=== PATIENT | female | born 1960 | race Caucasian/White ===

== ENCOUNTER 2016-10-07 14:34 | Emergency (ER) | payer MEDICARE, OTHER ==
[~2016-10-07] VITALS: Ht 172.7 cm; Wt 97.0 kg
[~2016-10-07 14:34] MED LIST: AZIT250T94 PO; IBUP-1542 PO; PROM5SYR2 PO
[2016-10-07 15:28] VITALS: Ht 172.7 cm; Wt 97.0 kg
--- NOTE | 2016-10-07 17:51 | ERD ---
ER Documentation Chief Complaint Date/Time DATE: 10/07/16 TIME: 17:47 Chief Complaint COUGH CONGESTION CWP WHEN COUGHING HPI Patient is a 56-year-old female who presents to the ED for cough, congestion, runny nose and chills. She states that she has had a cough for 3 weeks. She states that she was given azithromycin 3 weeks ago for bronchitis. She states that her cough got better and now has come back. She complains of a productive and dry cough, nasal congestion, chills. She denies fevers. She denies abdominal pain, nausea, vomiting or diarrhea. She denies shortness of breath, leg pain or swelling. She denies recent travel. She denies headache or dizziness or weakness. Denies neck pain or stiffness. patient has a history of smoking, smokes about 1/2 pack to 1 pack a day. ROS All systems reviewed and are negative except as per history of present illness. Medications Home Meds Active Scripts Benzonatate* (Tessalon Perle*) 100 Mg Capsule, 100 MG PO Q8H Y for COUGH for 14 Days, CAP Prov:MANUEL LARES PA-C 10/07/16 Albuterol Sulfate* (Albuterol Sulfate*) 4 Mg Tablet, 4 MG PO TID for 14 Days, TAB Prov:MANUEL LARES PA-C 10/07/16 Prednisone* (Prednisone*) 20 Mg Tab, 40 MG PO DAILY for 4 Days, TAB Prov:MANUEL LARES PA-C 10/07/16 Promethazine HCl/Codeine (Prometh-Codein 6.25-10 mg/5 ml) 5 Ml Syrup, 5 ML PO QID for 5 Days Prov:ERICKA ABREU MD 09/16/16 Azithromycin* (Zithromax*) 250 Mg Tablet, 250 MG PO .ZPACK DIRECTED, #6 TAB TAKE 500 MG (2 TABS) THE FIRST DAY THEN 250 MG (1 TAB) DAYS 2-5 Prov:ERICKA ABREU MD 09/16/16 Ibuprofen* (Motrin*) 600 Mg Tab, 600 MG PO Q6, #20 TAB Prov:ERICKA ABREU MD 09/16/16 Discontinued Scripts Albuterol Sulfate* (Albuterol Sulfate* Liq) 2 Mg/5 Ml Syrup, 2 MG PO TID, #240 ML Prov:ARNAUDMANUEL DEGROOT 10/07/16 Allergies Allergies: Coded Allergies: amoxicillin (Verified Allergy, Mild, ITCHING, 09/16/16) Penicillins (Verified Allergy, Unknown, 09/16/16) phenol (Verified Allergy, Unknown, 09/16/16) PMhx/Soc History of Surgery: Yes (RIGHT ANKLE) Anesthesia Reaction: No Hx Neurological Disorder: No Hx Respiratory Disorders: No Hx Cardiac Disorders: No Hx Psychiatric Problems: Yes (SCHIZOPHRENIA) Hx Miscellaneous Medical Probl: No Hx Alcohol Use: No Hx Substance Use: No Hx Tobacco Use: No FmHx Family History: No coronary disease, No diabetes, No other Physical Exam Vitals Vital Signs Date Time Temp Pulse Resp B/P Pulse Ox O2 Delivery O2 Flow Rate FiO2 10/07/16 18:46 98.7 92 18 153/72 97 Room Air 10/07/16 17:54 80 18 96 21 10/07/16 15:28 98.7 87 18 163/77 95 Physical Exam GENERAL: Well-developed, well-nourished female. Appears in mild distress. HEAD: Normocephalic, atraumatic. EYES: Pupils are equally reactive bilaterally. EOMs grossly intact. No conjunctival erythema. ENT: Moist mucous membranes. No uvula deviation. No kissing tonsils. No exudates. NECK: Supple. No lymphadenopathy or thyromegaly. No meningismus. negative brudinski. negative kernig. LUNG: Clear to auscultation bilaterally. No rhonchi, wheezing, rales. coarse breath sounds. chest tightness HEART: Regular rate and rhythm. No murmurs, rubs or gallops. Extremities: Equal pulses bilaterally. No peripheral clubbing, cyanosis or edema. No unilateral leg swelling. NEUROLOGIC: Alert and oriented. Moving all four extremities. 5/5 strength in all extremities. Normal speech. Steady gait. SKIN: Normal color. Warm and dry. No rashes or lesions. Capillary refill < 2 seconds Results 24 hrs Current Medications Medications (Trade) Dose Ordered Sig/Nati Route PRN Reason Start Time Stop Time Status Last Admin Dose Admin Albuterol (Proventil 0.083% (Neb)) 5 mg ONCE ONCE HHN 10/07/16 18:00 10/07/16 18:01 DC 10/07/16 17:54 Ipratropium Ivins (Atrovent 0.02% (Neb)) 0.5 mg ONCE ONCE HHN 10/07/16 18:00 10/07/16 18:01 DC 10/07/16 17:54 Procedures/MDM ER COURSE: I kept the patient and/or family informed of laboratory and diagnostic imaging results throughout the emergency room course. EKG, MONITORS, & DIAGNOSTIC IMAGING: [place] [address] Radiology Main Line: [phone] DIAGNOSTIC IMAGING REPORT Patient: MARY MARTÍNEZ : 1960 Age: 56 Sex: F MR #: [id number] DOS: 10/07/16 1737 Ordering MD: MANUEL LARES PA-C Location: [facility] Room/Bed: PROCEDURE: XR Chest. CLINICAL INDICATION: Cough TECHNIQUE: Single frontal view of the chest was obtained COMPARISON: 05/03/2009 FINDINGS: The heart and mediastinum are within normal limits. There are mild increased interstitial changes in the lung bases. There is no pleural effusion or pneumothorax. RPTAT: AA IMPRESSION: Mild increased interstitial changes in the lung bases with no focal consolidation. .Ross Hodge MD, MD Date Time Electronically viewed and signed by .Ross Hodge MD, on 10/07/2016 18: 21 .S/ CC: MANUEL LARES PA-C PROCEDURES: RT consult. Atrovent and Albuterol. Patient stated improvement in symptoms. MEDICAL DECISION MAKING: This is a 56-year-old female who presents with cough, congestion.. Vital signs were reviewed. Patient is afebrile. Patient is not hypoxic. Patient has cough of unknown known etiology. Low suspicion for pneumonia, PE, pneumothorax, ACS, epiglottitis, obstruction, TB, pertussis, meningitis, sepsis. I have low suspicion for cardiac emergencies. Low suspicion for ACS, PE, AAA, dissection, DVT. Patient is not tachycardic, no leg pain or swelling. Low suspicion for peritonsillar abscess, strep pharyngitis, mononucleosis, dental abscess. I do not think patient needs to be admitted at this time as she does not shows signs of respiratory distress and has oxygen saturation within normal limits. DISCHARGE: At this time, patient is stable for discharge and outpatient management with no new complaints during the ER course. Patient was sent home with albuterol, Tessalon Perles, prednisone. Patient will be discharged home with instructions to recheck for new or worsening symptoms such as fever, nausea, weakness, LOC and to follow up with primary care in the next 1-2 days. Patient was advised to return to the ER for any new or worsening symptoms. Plan was discussed and patient and/or family understands and agrees. Home instructions were given. Departure Diagnosis: Primary Impression: Cough Condition: Stable MANUEL LARES PA-C Oct 07, 2016 17:51
[2016-10-07] MEDS ORDERED: ALBUTEROL 0.083% (NEB) 2.5 MG/3 ML AMP HHN ONE (18:00)
[2016-10-07] MEDS ORDERED: IPRATROPIUM (NEB) 0.5 MG/2.5 ML AMP HHN ONE (18:00)
--- NOTE | 2016-10-07 18:21 | RADRPT ---
PROCEDURE: XR Chest. CLINICAL INDICATION: Cough TECHNIQUE: Single frontal view of the chest was obtained COMPARISON: 05/03/2009 FINDINGS: The heart and mediastinum are within normal limits. There are mild increased interstitial changes in the lung bases. There is no pleural effusion or pneumothorax. RPTAT: AA IMPRESSION: Mild increased interstitial changes in the lung bases with no focal consolidation. .Ross Hodge MD, MD Date Time Electronically viewed and signed by .Ross Hodge MD, on 10/07/2016 18:21 .S/
[2016-10-07] MEDS ORDERED: PRED20TA PO (18:30)
[2016-10-07] MEDS ORDERED: ALBU4TAB4 PO (18:31)
[2016-10-07] MEDS ORDERED: ALBU2SYR10 PO (18:31)
[2016-10-07] MEDS ORDERED: BENZ100C70 PO (18:31)
[2016-10-07 18:46] VITALS: BP 153/72; PULSE 92; RESP 18; TEMP 98.7
== END 2016-10-07 18:45 | disposition home or self-care (01) ==
LOC: FTE 14:34
DX: R05 Cough (principal); F17.210 Nicotine dependence, cigarettes, uncomplicated
CPT/HCPCS: 71010; 94664

== ENCOUNTER 2016-11-30 14:28 | Emergency (ER) | payer MEDICARE, OTHER ==
[~2016-11-30] VITALS: Ht 172.7 cm; Wt 99.9 kg
[~2016-11-30 14:28] MED LIST changes: +ALBU4TAB4 PO; +BENZ100C70 PO; +PRED20TA PO
[2016-11-30 14:44] VITALS: Ht 172.7 cm; Wt 99.9 kg
== END 2016-11-30 19:13 | disposition left against medical advice (07) ==
LOC: FTE 14:28
DX: Z53.21 Procedure and treatment not carried out due to patient leaving prior to being seen by health care provider (principal)

== ENCOUNTER 2016-12-10 08:56 | Emergency (ER) | payer MEDICARE, OTHER ==
[~2016-12-10] VITALS: Wt 78.0 kg
[2016-12-10] MEDS ORDERED: IBUP-1542 PO (11:54)
[2016-12-10] MEDS ORDERED: CLIN-73 PO (11:54)
--- NOTE | 2016-12-10 13:21 | ERD ---
ER Documentation Chief Complaint Date/Time DATE: 12/10/16 TIME: 13:20 Chief Complaint left lower leg redness for a few days. bruising . no fevers noted. HPI Patient is a 56-year-old female with psychiatric disease who presents with left ankle pain and redness. She said that she fell a few days ago onto a shopping cart. She had an injury which broke the skin and now has redness around that area. She felt chills but no fevers. Upon review of old medical records she has multiple visits to the ER for various complaints. Her primary doctor is Dr. Parks. ROS All systems reviewed and are negative except as per history of present illness. Medications Home Meds Active Scripts Ibuprofen* (Motrin*) 600 Mg Tab, 600 MG PO Q6H Y for PAIN AND OR ELEVATED TEMP, #30 TAB Prov:MK CHOI MD 12/10/16 Clindamycin Hcl* (Clindamycin Hcl*) 300 Mg Capsule, 300 MG PO TID for 7 Days, CAP Prov:MK CHOI MD 12/10/16 Benzonatate* (Tessalon Perle*) 100 Mg Capsule, 100 MG PO Q8H Y for COUGH for 14 Days, CAP Prov:MANUEL LARESC 10/07/16 Albuterol Sulfate* (Albuterol Sulfate*) 4 Mg Tablet, 4 MG PO TID for 14 Days, TAB Prov:MANUEL LARES PA-C 10/07/16 Prednisone* (Prednisone*) 20 Mg Tab, 40 MG PO DAILY for 4 Days, TAB Prov:MANUEL LARES PA-C 10/07/16 Promethazine HCl/Codeine (Prometh-Codein 6.25-10 mg/5 ml) 5 Ml Syrup, 5 ML PO QID for 5 Days Prov:ERICKA ABREU MD 09/16/16 Azithromycin* (Zithromax*) 250 Mg Tablet, 250 MG PO .JayleenPACK DIRECTED, #6 TAB TAKE 500 MG (2 TABS) THE FIRST DAY THEN 250 MG (1 TAB) DAYS 2-5 Prov:ERICKA ABREU MD 09/16/16 Ibuprofen* (Motrin*) 600 Mg Tab, 600 MG PO Q6, #20 TAB Prov:ERICKA ABREU MD 09/16/16 Allergies Allergies: Coded Allergies: amoxicillin (Verified Allergy, Mild, ITCHING, 09/16/16) Penicillins (Verified Allergy, Unknown, 09/16/16) phenol (Verified Allergy, Unknown, 09/16/16) PMhx/Soc History of Surgery: Yes (RIGHT ANKLE) Anesthesia Reaction: No Hx Neurological Disorder: No Hx Respiratory Disorders: No Hx Cardiac Disorders: No Hx Psychiatric Problems: Yes (SCHIZOPHRENIA) Hx Miscellaneous Medical Probl: No Hx Alcohol Use: No Hx Substance Use: No Hx Tobacco Use: No Smoking Status: Never smoker FmHx Family History: No diabetes Physical Exam Vitals Vital Signs Date Time Temp Pulse Resp B/P Pulse Ox O2 Delivery O2 Flow Rate FiO2 12/10/16 09:13 98.1 100 21 135/74 99 Physical Exam Const: No acute distress Head: Atraumatic Eyes: Normal Conjunctiva ENT: Normal External Ears, Nose and Mouth. Neck: Full range of motion..~ No meningismus. Resp: Clear to auscultation bilaterally Cardio: Regular rate and rhythm, no murmurs Abd: Soft, non tender, non distended. Normal bowel sounds Skin: Abrasion to the lower left tibia with surrounding erythema consistent with cellulitis, no abscess palpated Back: No midline or flank tenderness Ext: No cyanosis, or edema, no pain over the medial or lateral malleolus Neur: Awake and alert Psych: Normal Mood and Affect Procedures/MDM Patient is a 56-year-old female presents with appears to be an acute cellulitis. The patient will be treated with clindamycin as she has an allergy to penicillin and amoxicillin. The patient will be discharged home with a prescription for ibuprofen as well. At this point I doubt fracture or dislocation. I doubt sepsis. I believe outpatient management is appropriate. However the patient went to follow-up closely with her primary doctor within 24- 48 hours for reevaluation. Departure Diagnosis: Primary Impression: Cellulitis Site of cellulitis: extremity Site of cellulitis of extremity: lower extremity Laterality: left Qualified Code: L03.116 - Cellulitis of left lower extremity Additional Impression: Erythema Condition: Fair Patient Instructions: Cellulitis Additional Instructions: Call your primary care doctor TOMORROW for an appointment during the next 1-2 days.See the doctor sooner or return here if your condition worsens before your appointment time. MK CHOI MD Dec 10, 2016 13:21
== END 2016-12-10 12:08 | disposition home or self-care (01) ==
LOC: FTE 08:56
DX: L03.116 Cellulitis of left lower limb (principal); L53.9 Erythematous condition, unspecified
CPT/HCPCS: 99283